=== PATIENT | female | born 1940 | race Caucasian/White ===

== ENCOUNTER → 2022-05-26 | Day surgery (SDC) | payer MEDICARE ==
[2022-05-25 12:51] LABS: BASOPHILS % 0.1 % (0.0-1.0); EOSINOPHILS % 0.5 % (0.0-6.0); HEMATOCRIT 35.1 % (34.2-44.1); HEMOGLOBIN 11.3 g/dL (12.0-16.0); LYMPHOCYTES # (AUTO) 0.9 (1.0-3.2); LYMPHOCYTES % 11.3 % (18.0-39.1); MEAN CORPUSCULAR HEMOGLOBIN 31.3 pg (28-32); MEAN CORPUSCULAR HGB CONC 32.2 g/dL (31-35); MEAN CORPUSCULAR VOLUME 97.2 fL (81-99); MONOCYTES # (AUTO) 0.5 (0.2-0.8); MONOCYTES % 5.7 % (4.4-11.3); NEUTROPHILS # (AUTO) 6.4 (2.1-6.9); PLATELET COUNT 152 x10e3/uL (140-360); RED BLOOD COUNT 3.61 x10e6/uL (3.6-5.1); RED CELL DISTRIBUTION WIDTH 13.2 % (11.7-14.4)
[~2022-05-26] MED LIST: ARICEPT5 MG PO; BENICAR40 MG PO; CYMBALTA20 MG PO; EPHEDRINE SULFATE INJ 50 MG/ML VIAL ONE; FUROSEMIDE40 MG PO; LACTATED RINGER'S 1,000 ML ONE; LIDOCAINE HCL 2% LOCAL INJ 5 ML SDV VIAL INJ ONE; LYRICA100 MG PO; OMEGA 3 1,0001 EACH PO; OMEPRAZOLE40 MG PO; POTASSIUM CHLO10 ME1 PO; PRAVASTATIN SOD10 MG PO; PROPOFOL IV EMULSION 10 MG/ML 20 ML VIAL ONE; VITAMIN D3 COM1 EACH PO
[2022-05-26 14:55] VITALS: BP 127/55
== END | disposition home or self-care (01) ==
LOC: OR 10:39
PROVIDERS: ATTEND Internal Medicine Gastroenterology
DX: Z12.11 Encounter for screening for malignant neoplasm of colon (principal); R15.9 Full incontinence of feces; K64.8 Other hemorrhoids; K61.0 Anal abscess; K64.4 Residual hemorrhoidal skin tags; I10 Essential (primary) hypertension; E11.9 Type 2 diabetes mellitus without complications; F03.90 Unspecified dementia, unspecified severity, without behavioral disturbance, psychotic disturbance, mood disturbance, and anxiety; Z01.810 Encounter for preprocedural cardiovascular examination; Z01.812 Encounter for preprocedural laboratory examination; Z79.899 Other long term (current) drug therapy; Z68.33 Body mass index [BMI] 33.0-33.9, adult
CPT/HCPCS: 36415 ×2; 82948; 85025; 93005; G0121; J2001; J2704; J7121; 45378